=== PATIENT | male | born 1960 | race Caucasian/White ===

== ENCOUNTER → 2020-08-22 | Outpatient (CLI) | payer OTHER ==
--- NOTE | 2020-08-22 16:25 | KCIC ---
2 views of each hand without comparison for primary osteoarthritis, bilateral hand pain. FINDINGS: There are no fractures or acute osseous abnormalities of either hand. Likewise, there are no significant degenerative changes, with joints and soft tissues appear normal bilaterally. No erosions are seen. No pathologic calcifications or radiopaque foreign bodies are evident. IMPRESSION: 1. Normal radiographs of the hands with no bony sequelae of arthritis. Electronically signed by: Jensen Atkins MD (08/22/2020 4:22 PM) [id number]
== END | disposition home or self-care (01) ==
LOC: KCIC 12:08
PROVIDERS: ATTEND Family Medicine
DX: M19.041 Primary osteoarthritis, right hand (principal); M19.042 Primary osteoarthritis, left hand; M47.812 Spondylosis without myelopathy or radiculopathy, cervical region
CPT/HCPCS: 73120